=== PATIENT | male | born 1985 | race Caucasian/White ===

== ENCOUNTER 2018-06-15 12:28 | Emergency (ER) | payer MEDICAID, SELFPAY ==
[2018-06-15 12:29] VITALS: BP 126/81; PULSE 112; RESP 18; TEMP 36.7; O2SAT 100; BMI 27.5
--- NOTE | 2018-06-15 13:06 | CT_ITS ---
STUDY: CT CERVICAL SPINE WITHOUT CONTRAST REASON FOR EXAM: Male, 32 years old. History of fall. RADIATION DOSAGE (If Supplied By Facility): CTDIvol = ( 24.13 ) mGy, DLP = ( 595.16 ) mGycm TECHNIQUE: High resolution transaxial imaging was performed without contrast material. Sagittal and coronal images were reconstructed. Individualized dose optimization techniques were used for this CT. COMPARISON: None FINDINGS: Normal craniovertebral junction. Normal anterior atlantoaxial articulation. Normal odontoid process. There is straightening of the normal cervical lordosis. Normal vertebral bodies and posterior osseous elements. C2-3: Normal endplates. Normal disc height and morphology. Normal central canal and intervertebral neuroforamina. C3-4: Normal endplates. Normal disc height and morphology. Normal central canal and intervertebral neuroforamina. C4-5: Normal endplates. Normal disc height and morphology. Normal central canal and intervertebral neuroforamina. C5-6: Normal endplates. Normal disc height and morphology. Normal central canal and intervertebral neuroforamina. C6-7: Normal endplates. Normal disc height and morphology. Normal central canal and intervertebral neuroforamina. C7-T1: Normal endplates. Normal disc height and morphology. Normal central canal and intervertebral neuroforamina. Normal visualized soft tissue structures. CT/Spine Cervical without Contras IMPRESSION: Straightening of the normal cervical lordosis. Electronically Signed: Albino Valdez MD at 14:11 EST , Service support ,
--- NOTE | 2018-06-15 13:06 | CT_ITS ---
STUDY: CT BRAIN WITHOUT CONTRAST REASON FOR EXAM: Male, 32 years old. History of fall. RADIATION DOSAGE (If Supplied By Facility): CTDIvol = ( 44.99 ) mGy, DLP = ( 89.85 ) mGycm TECHNIQUE: Transaxial CT imaging of the brain was performed without administration of intravenous contrast material. Individualized dose optimization techniques were used for this CT. COMPARISON: None. FINDINGS: Normal soft tissue structures. Normal calvarium. Normal size ventricles and extra-axial spaces for the patient's age. Normal white matter tracts of the cerebral hemispheres. Normal basal ganglia and thalami. Normal brainstem. Normal cerebellum. There is no intracranial hemorrhage. There are no findings of an acute ischemic infarction. Normal visualized paranasal sinuses. CT/Brain/Head without Contrast IMPRESSION: Normal unenhanced CT scan of the brain. Electronically Signed: Albnio Valdez MD at 14:10 EST , Service support ,
[2018-06-15 14:28] VITALS: RESP 14
--- NOTE | 2018-06-15 14:38 | ED.DCSUM_ITS ---
- ER Visit Summary Date of Service: 06/15/18 Chief Complaint: Head injury History of Present Illness: The patient is a 32 M who fell from a stepladder approximately 5 or 6 feet onto the snowy ground. Patient believes he lost consciousness but is not sure. He is complaining of pain to the posterior occiput in his neck. He states he has trouble focusing. Past history significant for ADHD, anxiety, depression. Physical Examination: Signs significant only for heart rate of 112. Head neck examination reveals tenderness to the right occiput and the cervical paraspinal muscles. No step-offs noted. No scalp hematoma or laceration noted. Heart is regular rate and rhythm. Lung sounds are clear. Chest wall is nontender. Abdomen is soft nontender. Neuro exam reveals normal strength and sensation throughout. Strong distal pulses are noted. Test Results: CT head is unremarkable. CT C-spine shows straightening of the normal lordosis. Emergency Department Course and Treatment: Patient declined anything for pain. On repeat evaluation he is resting comfortably. He states he still feels like he has trouble focusing in his neck is getting tighter. He will be given naproxen and Flexeril. He is given information on concussions. Treatment Plan: [] Disposition: Discharge Impression: 1. Fall 2. Concussion 3. Cervical strain This note was generated with [employer] dictation software. It may contain incorrect words, spelling, and punctuation that were not noted in review of the chart prior to signing ED Disposition - Plan for ED Patient: Chief Complaint: Fall Referrals: Care Physician,No Primary [Primary Care Provider] -
--- NOTE | 2018-06-15 14:38 | ED.DEP ---
ED Disposition - Plan for ED Patient: Disposition: Home or Assisted Living Chief Complaint: Fall Instructions: ED Mechanical Fall, ED Concussion, ED Sprain Strain Neck Prescriptions: Naproxen [Naprosyn] 500 mg PO BID PRN PRN #20 tablet PRN Reason: Pain Additional Instructions: Follow-up with [address] [place] [address]
--- NOTE | 2018-06-15 14:42 | DCINST.ED_ITS ---
ED Disposition - Plan for ED Patient: Disposition: Home or Assisted Living Chief Complaint: Fall Instructions: ED Mechanical Fall, ED Concussion, ED Sprain Strain Neck Prescriptions: Naproxen [Naprosyn] 500 mg PO BID PRN PRN #20 tablet PRN Reason: Pain Additional Instructions: Follow-up with [address] [place] [address]
[2018-06-15 14:56] VITALS: RESP 16
== END 2018-06-15 14:59 | disposition home or self-care (01) ==
PROVIDERS: Emergency Provider Emergency Medicine
DX: S06.0X0A Concussion without loss of consciousness, initial encounter (principal); S16.1XXA Strain of muscle, fascia and tendon at neck level, initial encounter; F90.9 Attention-deficit hyperactivity disorder, unspecified type; F41.9 Anxiety disorder, unspecified; F32.9 Major depressive disorder, single episode, unspecified; Z79.899 Other long term (current) drug therapy; W11.XXXA Fall on and from ladder, initial encounter; Y93.89 Activity, other specified; Y92.89 Other specified places as the place of occurrence of the external cause; Y99.8 Other external cause status
CPT/HCPCS: 70450; 72125; 99282